=== PATIENT | male | born 2000 | race Caucasian/White ===

== ENCOUNTER 2018-03-01 00:05 | Emergency (ER) | payer OTHER ==
[~2018-03-01] VITALS: Ht 175.3 cm; Wt 106.6 kg
[~2018-03-01 00:05] MED LIST: ALBU90OI INH; ALBU90OI6 INH; ALBU90OI61 INH; AMOX250CH PO; AMOX500 PO; AMOX50SU PO; CODGUAEL PO; CRUTCH4 XX; DIPH50; DIPH50 PO; FAMO20 PO; HYOS.125 SL; IBUP100S PO; METF500; METF500 PO; MONT10T PO; Motrin600 MG PO; PRED20 PO; PROCODE120 PO; PSEU120ER PO; PSEU30 PO; Prednisone20 MG PO; RXPROCODSY PO; TYLENOL; Tylenol With C1 EACH PO; Ventolin/Prove6.7 GM INH; Zofran Odt4 MG PO; [UNRECOGNIZED DRUG - REMARK]; [UNRECOGNIZED DRUG - REMARK]
[2018-03-01] MEDS ORDERED: Augmentin 875-1 EACH PO (01:20)
== END 2018-03-01 01:44 | disposition home or self-care (01) ==
LOC: ER 00:05
DX: J18.9 Pneumonia, unspecified organism (principal); J45.909 Unspecified asthma, uncomplicated
CPT/HCPCS: 71046; 93005; 93010; 99283

== ENCOUNTER 2018-04-08 13:38 | Emergency (ER) | payer OTHER ==
[~2018-04-08] VITALS: Ht 177.8 cm; Wt 104.3 kg
[~2018-04-08 13:38] MED LIST changes: +Augmentin 875-1 EACH PO
[2018-04-08] MEDS ORDERED: ALBU90OI INH (14:49)
== END 2018-04-08 14:53 | disposition home or self-care (01) ==
LOC: ER 13:38
DX: R07.89 Other chest pain (principal); R06.02 Shortness of breath; R05 Cough; J45.909 Unspecified asthma, uncomplicated
CPT/HCPCS: 71046; 94640; 99283

== ENCOUNTER 2020-11-09 22:01 | Emergency (ER) | payer OTHER ==
[~2020-11-09] VITALS: Ht 180.3 cm; Wt 113.4 kg
== END 2020-11-09 22:30 | disposition home or self-care (01) ==
LOC: ER 22:01
DX: S86.001A Unspecified injury of right Achilles tendon, initial encounter (principal); J45.909 Unspecified asthma, uncomplicated; X50.1XXA Overexertion from prolonged static or awkward postures, initial encounter
CPT/HCPCS: 99283

== ENCOUNTER 2021-02-13 03:55 | Emergency (ER) | payer OTHER ==
[~2021-02-13] VITALS: Ht 177.8 cm; Wt 108.9 kg
== END 2021-02-13 06:19 | disposition home or self-care (01) ==
LOC: ER 03:55
DX: J02.9 Acute pharyngitis, unspecified (principal)
CPT/HCPCS: 87430; 99283

== ENCOUNTER 2024-09-17 07:06 | Emergency (ER) | payer OTHER ==
[~2024-09-17] VITALS: Ht 177.8 cm; Wt 106.6 kg
[2024-09-17] MEDS ORDERED: Ketorolac Tromethamine 30mg Vial IV ONE (07:25)
[2024-09-17] MEDS ORDERED: DiphenhydrAMINE HCl 50 MG/ML 1ML Vial IV ONE (07:25)
[2024-09-17] MEDS ORDERED: NS 1,000 ML IV SCH (07:25)
[2024-09-17] MEDS ORDERED: Metoclopramide HCl 5MG / ML 2ML Vial IV ONE (07:25)
[2024-09-17] MEDS ORDERED: Droperidol 5 mg/2 ml Vial IV ONE (08:45)
[2024-09-17] MEDS ORDERED: REGLAN1013 PO (10:19)
[2024-09-17 10:30] VITALS: BP 126/88
== END 2024-09-17 10:31 | disposition home or self-care (01) ==
LOC: ER 07:06
DX: G43.909 Migraine, unspecified, not intractable, without status migrainosus (principal); J45.909 Unspecified asthma, uncomplicated
CPT/HCPCS: 70450; 96374; 96375; 99284-25; J1200; J1790; J1885; J2765; J7030